=== PATIENT | male | born 1985 | race Asian ===

== ENCOUNTER → 2017-04-09 | Outpatient (CLI) | payer OTHER | END | disposition home or self-care (01) | LOC: RAH 08:19 | PROVIDERS: ATTEND Internal Medicine | DX: K80.20 Calculus of gallbladder without cholecystitis without obstruction (principal); K76.0 Fatty (change of) liver, not elsewhere classified; B19.10 Unspecified viral hepatitis B without hepatic coma | CPT/HCPCS: 76705 ==